=== PATIENT | female | born 1960 | race Caucasian/White ===

== ENCOUNTER 2017-12-30 12:08 | Emergency (ER) | payer BC, OTHER ==
[2017-12-30 12:55] VITALS: BP 140/76
--- NOTE | 2017-12-30 13:53 | UC ---
Lower Extremity/Ankle HPI - HPI Summary HPI Summary: 57 y/o female presents to the urgent care c/o left lower leg swelling and redness for the past week. Pt states Hx of DVT in the past and is not presently taking any anticoagulants. Pt also states Hx of DM type and Phlebitis. Her DM has not been well controlled since her last HgA1c was 10.2. Pt states recent travel about 2 weeks ago to [place]. She states her left lower leg swelling got worse yesterday since she developed redness on the anterior aspect of LLL. Pain at touch is 7/10 pressure in character w/o any radiating. Pt denies numbness or tingling sensation over the left leg, SOb, chest pain, palpitations, fever, abdominal pain, N/V/D. She has taking Ibuprofen PO to alleviate symptoms. - History of Current Complaint Chief Complaint: UCLowerExtremity Stated Complaint: LEG PAIN Time Seen by Provider: 12/30/17 13:51 Hx Obtained From: Patient ?: No Onset/Duration: Gradual Onset, Lasting Weeks - 1 week, Still Present, Worse Since - 2 days Severity Initially: Mild Severity Currently: Moderate Pain Intensity: 7 - at touch Pain Scale Used: 0-10 Numeric Aggravating Factor(s): Standing, Ambulation Alleviating Factor(s): Rest, Elevation, OTC Meds Able to Bear Weight: Yes - Risk Factors Gout Risk Factors: Diabetes, Obesity, Peripherial Vascular Disease DVT Risk Factors: Prior DVT Septic Arthritis Risk Factor: Negative - Allergies/Home Medications Allergies/Adverse Reactions: Allergies Allergy/AdvReac Type Severity Reaction Status Date / Time cephalexin [From Keflex] Allergy Hives Verified 12/30/17 14:40 PMH/Surg Hx/FS Hx/Imm Hx Previously Healthy: Yes Endocrine History: Diabetes, Dyslipidemia Cardiovascular History: Deep Vein Thrombosis Other Cardiovascular History: Phlebitis - Surgical History Surgical History: Yes Surgery Procedure, Year, and Place: Gallbladder. Tubal - Family History Known Family History: Positive: Cardiac Disease, Hypertension, Diabetes - Social History Occupation: Employed Full-time Lives: With Family Alcohol Use: Occasionally Substance Use Type: None Smoking Status (MU): Light Every Day Tobacco Smoker Review of Systems Constitutional: Negative Skin: Rash - left lower w/ red rsh ans swelling Eyes: Negative ENT: Negative Respiratory: Negative Cardiovascular: Negative Gastrointestinal: Negative Genitourinary: Negative Motor: Negative Neurovascular: Negative Musculoskeletal: Decreased ROM - left lower leg, Other: - left lower leg pain and edema Neurological: Negative Psychological: Negative Is Patient Immunocompromised?: No All Other Systems Reviewed And Are Negative: Yes Physical Exam - Summary Physical Exam Summary: Vital Signs Reviewed: Yes Appearance: Well-Appearing, No Pain Distress, Well-Nourished, Obese female sitting in the examining table w/o any apparent pain distress Eyes: Positive: Conjunctiva Clear - PERRLA< NASH, fundi grossly WNL ENT: Positive: Normal ENT inspection, Hearing grossly normal, Pharynx normal, TMs normal, Uvula midline Neck: Positive: Supple, Nontender, No Lymphadenopathy Respiratory: Positive: Chest non-tender, Lungs clear, Normal breath sounds, No respiratory distress Cardiovascular: Positive: RRR, No Murmur, Pulses Normal, Brisk Capillary Refill Abdomen Description: Positive: Nontender, No Organomegaly, Soft. Negative: CVA Tenderness (R), CVA Tenderness (L) Bowel Sounds: Positive: Present Extremities: L extremity without deformity or asymmetry when compared to the R. Severe soft tissue swelling and edema. Positive overlying erythema, warmth, discoloration. No lesions or break in skin integrity. Diameter of LF calves 19cm , RT:15cm. Soft tissues of posterior lower legs are soft, supple, tender to palpation w/ palpable cords and evidence of thrombophlebitis. No evidence of gangrene or compartment syndrome. Medial thigh is without soft tissue swelling or tender to palpation. Negative Homans sign. Possible superficial thrombophlebitis with palpable, tender cords. No proximal lymphangitis or lymphadenopathy. Neurological Exam: Normal Psychological Exam: Normal Skin Exam: Normal Triage Information Reviewed: Yes Vital Signs: Initial Vital Signs Temp 98.7 F 12/30/17 12:52 Pulse 90 12/30/17 12:52 Resp 18 12/30/17 12:52 BP 140/76 12/30/17 12:52 Pulse Ox 99 12/30/17 12:52 Lower Extremity Course/Dx - Course Course Of Treatment: 57 y/o female presents to the urgent care c/o left lower leg swelling and redness for the past week. Pt states Hx of DVT in the past and is not presently taking any anticoagulants. Pt also states Hx of DM type and Phlebitis. Her DM has not been well controlled since her last HgA1c was 10.2. Pt states recent travel about 2 weeks ago to [place]. She states her left lower leg swelling got worse yesterday since she developed redness on the anterior aspect of LLL. Pain at touch is 7/10 pressure in character w/o any radiating. Pt denies numbness or tingling sensation over the left leg, SOb, chest pain, palpitations, fever, abdominal pain, N/V/D. She has taking Ibuprofen PO to alleviate symptoms. Hx obtained. At this moment Pt needs a dupplex Ultrasoun to r/o DVT since Hx of DVT in the past and present severe LLL edema. We don't have US available at this moment. Pt's symptoms discussed w/ Dr Valentin for the need to fo to the ER to r/o DVT. Dr Valentin agreed. I explained PT the need for a higher level of care at the [facility] ER for further work up . Pt declined Ambulance transfer and stated she will go to the ER by private car. Pt explained the risks of declining ambulance transfer. I spoke to AMBIKA Mirza at [facility] and she accepted the PT. Pt left the clinic ambulatind and Hemodynamically stable, A&OX3 - Differential Dx/Diagnosis Differential Diagnosis/HQI/PQRI: Cellulitis, Compartment Syndrome, DVT, Osteomyelitis, Sprain, Strain, Tendonitis, Other - phlebitis Provider Diagnoses: 1- Left lower leg pain and edema r/o DVT Discharge - Sign-Out/Discharge Documenting (check all that apply): Patient Departure - Pt hihgly recommended to go immeditely to the ER for further management in her presenting symptoms to r/o DVT - Discharge Plan Condition: Stable Disposition: HOME-RECOMMEND TO ED Patient Education Materials: Leg Edema (ED), Leg Pain (ED) Referrals: Chucho Andrade MD [Primary Care Provider] - 3 Days Additional Instructions: I think you need a higher level or care for your presenting symptoms. I highly recommend you to go to the ER for further evaluation and treatment. The risks of not going can be , DVT, Pulmonary embolism, heart attack, etc. I spoke to the ER AMBIKA Mirza. . They are expecting you. - Billing Disposition and Condition Condition: STABLE Disposition: Home-Recommend to ED
== END 2017-12-30 14:15 | disposition home health service (06) ==
LOC: UCEAST 12:08
DX: M79.662 Pain in left lower leg (principal); R60.9 Edema, unspecified; Z86.718 Personal history of other venous thrombosis and embolism; E11.9 Type 2 diabetes mellitus without complications; Z88.1 Allergy status to other antibiotic agents; F17.210 Nicotine dependence, cigarettes, uncomplicated
CPT/HCPCS: 99212; G0463

== ENCOUNTER 2017-12-30 14:36 | Emergency (ER) | payer OTHER ==
[2017-12-30 15:25] LABS: ABS Basophils 0 10^3/ul (0-0.2); ABS Eosinophils 0.2 10^3/ul (0-0.6); ABS Lymphocytes 2.2 10^3/ul (1.0-4.8); ABS Monocytes 0.4 10^3/ul (0-0.8); ABS Nucleated RBC 0 10^3/ul; Eosinophil % 2.8 % (0-6); Hematocrit 44 % (35-47); Hemoglobin 14.9 g/dl (12.0-16.0); Lymphocyte % 32.2 % (25-47); Mean Corpuscular HGB Conc 34 g/dl (31-36); Mean Corpuscular Hemoglobin 30 pg (27-31); Mean Corpuscular Volume 88 fL (80-97); Mean Platelet Volume 7.7 um3 (7.4-10.4); Nucleated Red Blood Cells % 0.1; Platelet Count 272 10^3/ul (150-450); Red Blood Count 4.98 10^6/ul (4.00-5.40); Red Cell Distribution Width 14 % (10.5-15); White Blood Count 6.9 10^3/ul (3.5-10.8)
[2017-12-30 15:33] LABS: INR 0.89 (0.77-1.02)
[2017-12-30 15:44] LABS: EGFR Non-African American 87.7 (>60)
--- NOTE | 2017-12-30 16:22 | RAD ---
HISTORY: leg swelling COMPARISONS: None relevant TECHNIQUE: Multiple transverse and longitudinal ultrasound images were obtained of the left lower extremity from the level of the common femoral vein inferiorly through to the infrapopliteal veins using grayscale, color Doppler, and spectral Doppler imaging with and without compression and with augmentation. Comparison images were obtained of the contralateral common femoral vein. FINDINGS: VEINS: There is occlusion of the greater saphenous vein along the inferior extent of the leg, distinct from the confluence of the greater saphenous vein. There are thrombosed superficial varicosities. The remainder of the venous system of the left lower extremity is compressible throughout its course, with normal flow on color Doppler imaging and normal response to augmentation on spectral Doppler imaging. SOFT TISSUES: Unremarkable. OTHER FINDINGS: None. IMPRESSION: SUPERFICIAL THROMBOPHLEBITIS WITHOUT LEFT LOWER EXTREMITY DEEP VEIN THROMBOSIS
--- NOTE | 2017-12-30 16:56 | ED ---
Lower Extremity - HPI Summary HPI Summary: Patient is a 57-year-old who presents emergency department for left leg swelling and redness x one week. Pt. states she has a history of DVTs but is not currently anticoagulated. She does note that she was in a long car trip driving back from [place] about 2 weeks ago. She denies chest pain or shortness of breath. Patient states she does intermittently get swelling in her left leg but typically not to this severity. She also states she has noticed redness over the last several days. She denies fever, chills, nausea, vomiting. She is a diabetic and states her sugars have not been well controlled lately. Symptoms are moderate in severity. No current modifying factors. - History of Current Complaint Chief Complaint: EDSoftTissueLowExtr Stated Complaint: LT LEG SWELLING Time Seen by Provider: 12/30/17 14:50 Hx Obtained From: Patient Pain Intensity: 4 - Allergies/Home Medications Allergies/Adverse Reactions: Allergies Allergy/AdvReac Type Severity Reaction Status Date / Time cephalexin [From Keflex] Allergy Hives Verified 12/30/17 14:40 Home Medications: Home Medications Atorvastatin* 20 mg PO DAILY 12/30/17 [History Confirmed 12/30/17] Citalopram HBr 10 mg PO DAILY 12/30/17 [History Confirmed 12/30/17] Glipizide 5 mg PO BID 12/30/17 [History Confirmed 12/30/17] Lisinopril 5 mg PO DAILY 12/30/17 [History Confirmed 12/30/17] PMH/Surg Hx/FS Hx/Imm Hx Previously Healthy: Yes Endocrine/Hematology History: Reports: Hx Diabetes - Cancer History Hx Chemotherapy: No Hx Radiation Therapy: No - Surgical History Surgery Procedure, Year, and Place: Gallbladder. Tubal Infectious Disease History: No Infectious Disease History: Denies: Traveled Outside the [place] in Last 30 Days - Family History Known Family History: Positive: Cardiac Disease, Hypertension, Diabetes - Social History Occupation: Employed Full-time Lives: With Family Alcohol Use: Occasionally Substance Use Type: Reports: None Smoking Status (MU): Light Every Day Tobacco Smoker Review of Systems Constitutional: Negative Negative: Fever, Chills Respiratory: Negative Negative: Shortness Of Breath, Cough Gastrointestinal: Negative Negative: Abdominal Pain, Vomiting Positive: Other - Pain and swelling to left lower leg Neurological: Negative Negative: Weakness, Paresthesia, Numbness All Other Systems Reviewed And Are Negative: Yes Physical Exam Triage Information Reviewed: Yes Vital Signs On Initial Exam: Initial Vitals Temp Pulse Resp BP Pulse Ox 98.6 F 86 16 138/85 94 12/30/17 14:40 12/30/17 14:40 12/30/17 14:40 12/30/17 14:40 12/30/17 14:40 Vital Signs Reviewed: Yes Appearance: Positive: Well-Appearing - Pt. sitting up in bed in NAD . Skin: Positive: Warm, Dry Head/Face: Positive: Normal Head/Face Inspection Eyes: Positive: Normal, EOMI Neck: Positive: Supple Musculoskeletal: Positive: Other - Diffuse edema to the left lower leg. Good pedial pulse. Mild overlying erythema to lower medial leg. Skin is dry. Neurological: Positive: Normal, CN Intact II-III Psychiatric: Positive: Affect/Mood Appropriate Diagnostics - Vital Signs Vital Signs Temp Pulse Resp BP Pulse Ox 12/30/17 14:40 98.6 F 86 16 138/85 94 - Laboratory Lab Results: Lab Results 12/30/17 12/30/17 12/30/17 Range/Units 15:18 15:18 15:18 WBC 6.9 (3.5-10.8) 10^3/ul RBC 4.98 (4.00-5.40) 10^6/ul Hgb 14.9 (12.0-16.0) g/dl Hct 44 (35-47) % MCV 88 (80-97) fL MCH 30 (27-31) pg MCHC 34 (31-36) g/dl RDW 14 (10.5-15) % Plt Count 272 (150-450) 10^3/ul MPV 7.7 (7.4-10.4) um3 Neut % (Auto) 58.2 (38-83) % Lymph % (Auto) 32.2 (25-47) % [place] % (Auto) 6.5 (0-7) % Eos % (Auto) 2.8 (0-6) % Baso % (Auto) 0.3 (0-2) % Absolute Neuts (auto) 4.0 (1.5-7.7) 10^3/ul Absolute Lymphs (auto) 2.2 (1.0-4.8) 10^3/ul Absolute Monos (auto) 0.4 (0-0.8) 10^3/ul Absolute Eos (auto) 0.2 (0-0.6) 10^3/ul Absolute Basos (auto) 0 (0-0.2) 10^3/ul Absolute Nucleated RBC 0 10^3/ul Nucleated RBC % 0.1 INR (Anticoag Therapy) 0.89 (0.77-1.02) Sodium 136 (135-145) mmol/L Potassium 4.1 (3.5-5.0) mmol/L Chloride 103 (101-111) mmol/L Carbon Dioxide 28 (22-32) mmol/L Anion Gap 5 (2-11) mmol/L BUN 14 (6-24) mg/dL Creatinine 0.69 (0.51-0.95) mg/dL Est GFR ( Amer) 106.1 (>60) Est GFR (Non-Af Amer) 87.7 (>60) BUN/Creatinine Ratio 20.3 H (8-20) Glucose 320 H (70-100) mg/dL Calcium 9.1 (8.6-10.3) mg/dL Total Bilirubin 0.30 (0.2-1.0) mg/dL AST 10 L (13-39) U/L ALT 18 (7-52) U/L Alkaline Phosphatase 108 H (34-104) U/L Total Protein 6.2 L (6.4-8.9) g/dL Albumin 3.7 (3.2-5.2) g/dL Globulin 2.5 (2-4) g/dL Albumin/Globulin Ratio 1.5 (1-3) Result Diagrams: 12/30/17 15:18 12/30/17 15:18 Lab Statement: Any lab studies that have been ordered have been reviewed, and results considered in the medical decision making process. Lower Extremity Course/Dx - Course Course Of Treatment: Patient presenting with unilateral leg swelling and history of DVT. She is afebrile with stable vital signs. Ultrasound and lab tests were ordered. Blood work is unremarkable. Venous duplex radiology: IMPRESSION: SUPERFICIAL THROMBOPHLEBITIS WITHOUT LEFT LOWER EXTREMITY DEEP VEIN THROMBOSIS. Will treat with NSAIDS. Will also start on antibx given increased redness and uncontrolled diabetes. Results discussed with pt. Advised to elevate leg and apply warm compresses. 600-800mg motrin Q8. To call PCP tomorrow for a f.u exam. May need u/s repeated in a week. To return to ER if sxs change or worsen. Pt. understands and agrees with plan. - Diagnoses Differential Diagnosis/HQI/PQRI: Positive: Compartment Syndrome, DVT, Infection , Sprain, Strain Provider Diagnoses: Superficial thrombophlebitis of left leg Discharge - Sign-Out/Discharge Documenting (check all that apply): Patient Departure - Discharge Plan Condition: Good Disposition: HOME Prescriptions: Amoxicillin/Clavulanate TAB* [Augmentin TAB 875*] 875 mg PO BID #20 tab Patient Education Materials: Superficial Thrombophlebitis (ED) Referrals: Chucho Andrade MD [Primary Care Provider] - Additional Instructions: Call your PCP tomorrow to schedule a follow up appointment Ultrasound may need to be repeat in 1 week Take antibiotic as directed Take ibuprofen 600-800mg every 8 hours x 1-2 weeks Elevate leg and apply warm compresses Return to ER if symptoms change or worsen - Billing Disposition and Condition Condition: GOOD Disposition: Home
[2017-12-30 17:04] VITALS: BP 167/89
== END 2017-12-30 17:03 | disposition home or self-care (01) ==
LOC: ED 14:36
DX: I80.02 Phlebitis and thrombophlebitis of superficial vessels of left lower extremity (principal); E11.9 Type 2 diabetes mellitus without complications; Z72.0 Tobacco use
CPT/HCPCS: 36415; 80053; 85025; 85610; 99282